=== PATIENT | female | born 2000 | race Caucasian/White ===

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

== ENCOUNTER → 2021-02-19 | Outpatient (CLI) | payer OTHER ==
[~2021-02-19] MED LIST changes: +GASTROGRAFIN SOLUTION 30ML (Q9963) As Ordered ONE; +ISOVUE-370 76% 100ML VIAL As Ordered ONE
[2021-02-19 15:12] LABS: BLOOD UREA NITROGEN 11 MG/DL (7-18); CALCIUM LEVEL 9.5 MG/DL (8.5-10.1); CARBON DIOXIDE LEVEL 28 MEQ/L (21-32); CHLORIDE LEVEL 106 MEQ/L (98-107); GLUCOSE, FASTING 94 MG/DL (70-100); POTASSIUM SERUM 4.4 MEQ/L (3.5-5.1); SODIUM LEVEL 140 MEQ/L (136-145)
--- NOTE | 2021-02-20 15:42 | REP ---
INDICATION: RLQ ABDOMINAL PAIN PT HAS LABS 1ST COMPARISON: 06/19/2017. TECHNIQUE: CT Scan of the abdomen and pelvis was performed with intravenous administration of 100 cc of Isovue 370, and oral contrast. Sagittal and coronal reconstruction images are performed. FINDINGS: Lung bases: Unremarkable. Liver: Normal Gallbladder: Unremarkable. Spleen: Normal. Adrenals: Normal. Pancreas: Normal. Kidneys: Normal. Small and large bowel: Unremarkable. Free fluid: Trace free fluid in the pelvis is likely physiologic. Abdominal aorta: No aneurysm or dissection. Adenopathy: None. There is a 1 cm lymph node in the mesentery of the right lower quadrant, decreased in size compared to the prior study, at which time it measured 1.2 cm. Appendix: Not inflamed. Osseous structures: Mild chronic compression deformity of T11 is again noted unchanged.. Pelvis: No mass. IMPRESSION: A 1 cm lymph node in the mesentery of the right lower quadrant has decreased in size since the prior study of 06/19/2017, at that time 1.2 cm. Mild stable chronic compression deformity of T11. Trace free fluid in the pelvis is likely physiologic. No other significant findings. <Electronically signed by Kostas Ramos > 02/20/21 [id number]
== END ==
LOC: M LAB 14:01 → M RAD 14:01
PROVIDERS: ATTEND Nurse Practitioner
DX: R10.31 Right lower quadrant pain (principal); R10.33 Periumbilical pain

== ENCOUNTER → 2021-05-25 | Outpatient (REF) | payer OTHER ==
[~2021-05-25] MED LIST changes: -GASTROGRAFIN SOLUTION 30ML (Q9963) As Ordered ONE; -ISOVUE-370 76% 100ML VIAL As Ordered ONE
[2021-05-25 18:30] LABS: GC DNA AMPLIFICATION NEGATIVE (NEGATIVE)
== END ==
LOC: M SFHCWAGY 16:47
PROVIDERS: ATTEND Obstetrics & Gynecology
DX: N93.9 Abnormal uterine and vaginal bleeding, unspecified (principal)

== ENCOUNTER → 2021-07-03 | Outpatient (REF) | payer OTHER ==
[2021-07-03 21:55] LABS: GC DNA AMPLIFICATION NEGATIVE (NEGATIVE)
== END ==
LOC: M SFHCWAGY 17:11
PROVIDERS: ATTEND Obstetrics & Gynecology
DX: Z11.3 Encounter for screening for infections with a predominantly sexual mode of transmission (principal)

== ENCOUNTER → 2022-01-23 | Outpatient (CLI) | payer OTHER | LOC: M RAD 11:28 | PROVIDERS: ATTEND Clinical Nurse Specialist Family Health | DX: S06.0X0D Concussion without loss of consciousness, subsequent encounter (principal); G44.311 Acute post-traumatic headache, intractable; H53.9 Unspecified visual disturbance ==

== ENCOUNTER → 2022-01-31 | Outpatient (REF) | payer OTHER | LOC: M LAB REF 15:42 | PROVIDERS: ATTEND Physician Assistant | DX: J02.9 Acute pharyngitis, unspecified (principal); R68.83 Chills (without fever) ==

== ENCOUNTER → 2023-07-07 | Outpatient (REF) | payer OTHER ==
[~2023-07-07] MED LIST changes: +MONT-5 PO; -SING10TA32 PO
[2023-07-07 14:59] LABS: CHLAMYDIA DNA AMPLIFICATION NEGATIVE (NEGATIVE); GC DNA AMPLIFICATION NEGATIVE (NEGATIVE)
== END ==
LOC: M SFHCWAGY 12:42
PROVIDERS: ATTEND Obstetrics & Gynecology
DX: Z12.4 Encounter for screening for malignant neoplasm of cervix (principal); Z11.3 Encounter for screening for infections with a predominantly sexual mode of transmission